=== PATIENT | male | born 1955 | race Caucasian/White ===

== ENCOUNTER → 2016-11-04 | Outpatient (CLI) | payer OTHER, MEDICAID ==
--- NOTE | 2016-11-04 16:08 | CPEKG ---
Heart Rate: 79 RR Interval: 759 P-R Interval: 188 QRSD Interval: 84 QT Interval: 364 QTC Interval: 418 P [place]: 80 QRS [place]: 72 T Wave [place]: 47 EKG Severity - ABNORMAL ECG - EKG Impression: SINUS RHYTHM EKG Impression: CONSIDER ANTEROSEPTAL INFARCT EKG Impression: P MITRALE IN LEAD ii CONSIDER MITRAL VALVE PATHOLOGY Electronically Signed By: Obinna Morales 05-Nov-2016 19:28:45
== END ==
LOC: FCP 15:50
PROVIDERS: ATTEND Orthopaedic Surgery
DX: Z01.810 Encounter for preprocedural cardiovascular examination (principal); M75.101 Unspecified rotator cuff tear or rupture of right shoulder, not specified as traumatic

== ENCOUNTER → 2016-11-09 | Outpatient (CLI) | payer OTHER, MEDICAID | LOC: BHFA 10:45 | PROVIDERS: ATTEND Internal Medicine Cardiovascular Disease | DX: Z01.810 Encounter for preprocedural cardiovascular examination (principal); I42.9 Cardiomyopathy, unspecified; R94.31 Abnormal electrocardiogram [ECG] [EKG] ==

== ENCOUNTER → 2018-06-14 | Outpatient (CLI) | payer OTHER, MEDICAID | LOC: FCPNEURO 00:36 | PROVIDERS: ATTEND Student in an Organized Health Care Education/Training Program | DX: G47.33 Obstructive sleep apnea (adult) (pediatric) (principal); G47.31 Primary central sleep apnea ==

== ENCOUNTER → 2018-12-01 | Outpatient (CLI) | payer OTHER, MEDICAID | LOC: FCPNEURO 19:00 | PROVIDERS: ATTEND Student in an Organized Health Care Education/Training Program | DX: G47.33 Obstructive sleep apnea (adult) (pediatric) (principal); G47.31 Primary central sleep apnea ==

== ENCOUNTER → 2019-01-10 | Outpatient (CLI) | payer OTHER, MEDICAID | LOC: CIMAGING 15:32 | PROVIDERS: ATTEND Urology | DX: N20.0 Calculus of kidney (principal) | CPT/HCPCS: 76770-PO ==

== ENCOUNTER → 2019-02-07 | Outpatient (CLI) | payer OTHER, MEDICAID | LOC: BMCIMAGING 14:29 | PROVIDERS: ATTEND Urology | DX: K80.20 Calculus of gallbladder without cholecystitis without obstruction (principal) ==

== ENCOUNTER → 2019-02-16 | Outpatient (CLI) | payer OTHER, MEDICAID | LOC: EMCIMAGING 14:10 | PROVIDERS: ATTEND Urology | DX: N20.0 Calculus of kidney (principal); K80.20 Calculus of gallbladder without cholecystitis without obstruction; K57.30 Diverticulosis of large intestine without perforation or abscess without bleeding; K59.00 Constipation, unspecified; K40.90 Unilateral inguinal hernia, without obstruction or gangrene, not specified as recurrent; M48.07 Spinal stenosis, lumbosacral region; M51.37 Other intervertebral disc degeneration, lumbosacral region; I70.0 Atherosclerosis of aorta | CPT/HCPCS: 74176-PN ==